=== PATIENT | female | born 1955 | race Caucasian/White ===

== ENCOUNTER 2016-10-09 08:46 | Outpatient (CLI) | payer OTHER ==
--- NOTE | 2016-10-09 09:09 | DIAGNOSTIC IMAGING REPORT ---
PROCEDURE: XR CHEST 2 VIEW INDICATION: COUGH X 3 WKS, ASTHMA, WEIGHT LOSS TECHNIQUE: PA and lateral views. COMPARISON: None. FINDINGS: Lungs are clear. Heart and mediastinum are normal. Thorax is normal. IMPRESSION: 1. Negative chest.
== END 2016-10-09 23:00 ==
LOC: XR SRH 08:46
DX: R05 Cough (principal); J45.909 Unspecified asthma, uncomplicated; R63.4 Abnormal weight loss